=== PATIENT | female | born 1960 | race Caucasian/White ===

== ENCOUNTER 2024-01-31 15:48 | Outpatient (CLI) | payer MEDICARE, OTHER, SELFPAY ==
--- NOTE | 2024-01-31 15:54 | XRR_ITS ---
PROCEDURE INFORMATION: Exam: XR Right Knee Exam date and time: 01/31/2024 4:01 PM Age: 64 years old Clinical indication: Pain; Knee; Right; Additional info: Right knee pain TECHNIQUE: Imaging protocol: Radiologic exam of the right knee. Views: 3 views. COMPARISON: No relevant prior studies available. FINDINGS: Bones/joints: The bones are intact. No fracture. Mild degenerative changes of all 3 knee compartments. No visible knee effusion. Soft tissues: Mild pretibial soft tissue swelling. XR/XR knee RT 3V* [id number] IMPRESSION: 1. No acute skeletal findings. 2. Pretibial soft tissue swelling.
== END 2024-01-31 15:49 | disposition home or self-care (01) ==
LOC: RAD 15:50
PROVIDERS: PCP Clinical Nurse Specialist Adult Health; Visit Provider Clinical Nurse Specialist Adult Health
DX: M25.561 Pain in right knee (principal); E03.9 Hypothyroidism, unspecified; M79.89 Other specified soft tissue disorders
CPT/HCPCS: 73562; 80053; 80061; 84443; 85025

== ENCOUNTER 2025-01-15 16:05 | Emergency (ER) | payer MEDICARE, OTHER, SELFPAY ==
[2025-01-15 16:09] VITALS: BP 157/87; PULSE 108; RESP 19; TEMP 37.1; O2SAT 100; BMI 45.6
--- NOTE | 2025-01-15 16:12 | CTR_ITS ---
PROCEDURE INFORMATION: Exam: CT Neck With Contrast Exam date and time: 01/15/2025 5:17 PM Age: 64 years old Clinical indication: Mass, lump, or swelling in neck; Bilateral and anterior; Prior surgery; Surgery date: 6+ months; Surgery type: Thyroid, CA, no chemo/radiation. ; Additional info: Neck mass TECHNIQUE: Imaging protocol: Computed tomography of the neck with contrast. Radiation optimization: All CT scans at this facility use at least one of these dose optimization techniques: automated exposure control; mA and/or kV adjustment per patient size (includes targeted exams where dose is matched to clinical indication); or iterative reconstruction. Contrast material: OMNIPAQUE 350; Contrast volume: 100 ml; Contrast route: INTRAVENOUS (IV); COMPARISON: CR XR chest 1V portable [id number] 01/15/2025 4:26 PM RADIATION DOSE METRICS: Total DLP (mGy-cm): 558.31 FINDINGS: Paranasal sinuses: Mild mucosal thickening within bilateral maxillary sinuses. No fluid levels. Salivary glands: Normal. Glands are normal in size. Pharynx: Unremarkable. No significant tonsillar enlargement. Larynx: Unremarkable. Epiglottis is normal. Thyroid: Atrophic versus surgically absent. Trachea: Visualized trachea is unremarkable. Lungs: Unremarkable as visualized. Lymph nodes: Numerous enlarged cervical lymph nodes are seen bilaterally. Examples include a 1.9 x 2.40 right level Ib lymph node, a 2.2 x 2.1 cm left level Ib lymph node, a 1.9 x 1.6 cm right level IIa lymph node, and a 1.3 x 2.9 cm left level IIa lymph node. Multiple additional enlarged lymph nodes are seen at essentially all cervical lymph node stations. Additionally, there are multiple enlarged supraclavicular lymph nodes bilaterally, including 1.8 x 2.3 cm right and 1.8 x 1.5 cm left supraclavicular lymph nodes. Multiple enlarged bilateral axillary and subpectoral lymph nodes are partially imaged. Bones/joints: Multilevel cervical spondylosis. Straightening of cervical lordosis is likely positional. No acute fracture. Soft tissues: Unremarkable. No significant soft tissue swelling. CT/CT neck w con* [id number] IMPRESSION: 1. Extensive cervical/supraclavicular and bilateral axillary/subpectoral lymphadenopathy, most likely either a lymphoproliferative disorder or possibly metastases. CT chest and CT abdomen/pelvis could be considered for more complete lymphadenopathy assessment. PET-CT and/or tissue sampling may also be of benefit for further evaluation. 2. Atrophic versus surgically absent thyroid.
--- NOTE | 2025-01-15 16:12 | XRR_ITS ---
PROCEDURE INFORMATION: Exam: XR Chest Exam date and time: 01/15/2025 4:26 PM Age: 64 years old Clinical indication: Other: Neck mass TECHNIQUE: Imaging protocol: Radiologic exam of the chest. Views: 1 view. COMPARISON: No relevant prior studies available. FINDINGS: Tubes, catheters and devices: Surgical clips overlie the upper abdomen. Lungs: Unremarkable. No consolidation. Pleural spaces: Unremarkable. No pleural effusion. No pneumothorax. Heart/Mediastinum: Unremarkable. No cardiomegaly. Bones/joints: Unremarkable. XR/XR chest 1V portable [id number] IMPRESSION: No acute cardiopulmonary process.
--- NOTE | 2025-01-15 16:13 | ECG_ITS ---
[facility] Test Date: 2025-01-15 Pat Name: Fabian Recinos Department: Room: Gender: Female Machine Packer: : [id number] Requested By: Carloz Ko Order Number: [id number] Reading MD: Measurements Intervals [place] Rate: 96 P: 35 MD: 138 QRS: 9 QRSD: 75 T: 8 QT: 369 QTc: 467 Interpretive Statements SINUS RHYTHM LOW QRS VOLTAGE IN PRECORDIAL LEADS [QRS DEFLECTION < 1.0 mV IN CHEST LEADS] [id number]
--- NOTE | 2025-01-15 16:23 | PC.PHAR ---
Pt had 9 otc vitamins, supplements, and nasal sprays on her med list that she said she no longer takes and would like them all removed. Pt only takes Synthroid 88mcg qam and Cymbalta 60mg qpm.
[2025-01-15 16:26] LABS: Basophils # 0.1 10^3/uL (0.0-0.1); Basophils % 0.7 %; Eosinophils # 0.2 10^3/uL (0.0-0.8); Eosinophils % 2.1 %; Hematocrit 44.4 % (36-47); Lymphocytes # 2.4 10^3/uL (0.8-4.8); Lymphocytes % 29.2 %; Mean Corpuscular HGB Conc 31.3 g/dL (30-55); Mean Corpuscular Hemoglobin 25.8 pg (27-33); Mean Corpuscular Volume 82.5 fl (85-98); Mean Platelet Volume 9.5 fL (7.4-10.4); Monocytes # 0.5 10^3/uL (0.2-0.9); Monocytes % 6.6 %; Neutrophils # 4.95 10^3/uL (1.8-7.7); Neutrophils % 61.3 %; Nucleated Red Blood Cells % 0 %; Platelet Count 250 10^3/cmm (157-399); Red Blood Count 5.38 10^6/uL (3.85-5.65); Red Cell Distribution Width 15.4 % (12.1-15.1); White Blood Count 8.08 10^3/uL (3.29-11.43)
[2025-01-15 16:49] LABS: Alanine Aminotransferase 10 U/L (0-33); Albumin Level 4.3 g/dL (3.5-5.2); Alkaline Phosphatase 85 U/L (35-105); Anion Gap 15.9 (5-19); Aspartate Amino Transferase 15 U/L (0-32); Blood Urea Nitrogen 10 mg/dL (8-23); Calcium 9.5 mg/dL (8.5-10.5); Carbon Dioxide 25 mmol/L (22-29); Chloride 102 mmol/L (98-107); Creatinine Clr Calc Pharmacy 85.5183; Glomerular Filtration Rate 62.8 mL/min (90-130); Glucose 107 mg/dL (65-115); Osmolality Calculated 288 mOsm/kg (285-295); Potassium 3.9 mmol/L (3.5-5.1); Sodium 139 mmol/L (136-145); Total Bilirubin 0.5 mg/dL (0.15-1.2); Total Protein 7.3 g/dL (6.6-8.7)
--- NOTE | 2025-01-15 17:14 | W.ED.NECK ---
HPI - Neck Pain/Injury General: Chief Complaint: Neck Pain/Injury Stated Complaint: swelling below chin sent by urgent care Time Seen by Provider: 01/15/25 16:12 History of Present Illness: 64-year-old female with history of thyroid cancer she had a thyroid resection several years ago. In the last 3 weeks she has had onset of increasing swelling in the submandibular space. She is not having difficulty with speech or swallowing but she does have pain in the submandibular area and it radiates to the back of her neck at times she feels like she has cervical neck pain as well. She has not had any fever sweats or chills she has been doing monitoring of her thyroid with TSH is usually when she is on levothyroxine. She states the last time TSH was checked was about a year ago was in the normal range. She denies any fever sweats or chills. Related Data Home Medications ?Medication ?Instructions ?Recorded ?Confirmed CPAP with mask, tubing and all 01/31/24 01/15/25 other supplies duloxetine 60 mg capsule,delayed 60 mg PO QPM 01/15/25 01/15/25 release levothyroxine 88 mcg tablet 88 mcg PO QAM 01/15/25 01/15/25 Allergies Allergy/AdvReac Type Severity Reaction Status Date / Time Penicillins Allergy Intermediate ADR-skin Verified 01/15/25 15:44 rash Tetracyclines Allergy Unknown Unknown Verified 01/15/25 15:44 Review of Systems Const: Denies: fever(s) or chills Card: Denies: chest pain Resp: Denies: dyspnea GI: Denies: abdominal pain : Denies: dysuria, urinary frequency or urinary urgency Musc: Reports: neck pain; Denies: back pain Skin/Breast: Denies: rash Miles/Lymph: Reports: enlarged lymph nodes and tender lymph nodes PFSH ED PFSH: Medical History Thyroid cancer RAJENDRA (obstructive sleep apnea) compliant with CPAP Migraines Morbid obesity Hypothyroidism Minor depression Generalized anxiety disorder Seasonal allergies Hx of Graves' disease Surgical History Hx of thyroidectomy 2007, papillary and follicular cancer History of gastric surgery 1986, stomach stapled with a ring put around it. gallbladder removed at that time. History of bilateral carpal tunnel release bilateral 2002 Hx of tonsillectomy 1977 Family History Mother Breast cancer Diabetes Brother CAD (coronary artery disease) Congestive heart failure (CHF) Father Hyperthyroidism Sister Hyperthyroidism Denies family history of Clotting disorder Anesthesia complication Bleeding disorder Social History Smoking and tobacco/nicotine status: never used tobacco/nicotine Alcohol intake: current Alcohol intake frequency: holidays/special occasions only Substance/Drug Use: current Other substance/drug use details: smokes occasionally if playing cards Marital status: Marital status details: 3 step children Number of grandchildren: 4 Physical Exam Const: GENERAL APPEARANCE: cooperative ORIENTATION/CONSCIOUSNESS: Yes awake, Yes oriented to person, Yes oriented to place and Yes oriented to time HENMT: COMMON NORMALS: normocephalic, atraumatic and hearing grossly normal bilaterally HEAD & SCALP: normocephalic and atraumatic Lymph: LYMPHATIC: lymphadenopathy bilateral anterior cervical , submandibular multiple Resp: COMMON NORMALS: normal respiratory effort, No retractions, No use of accessory muscles and clear to auscultation bilaterally AUSCULTATION: clear to auscultation bilaterally Cardio: COMMON NORMALS: regular rate, regular rhythm and No murmurs present (Cardio) RATE: regular rate RHYTHM: regular rhythm GI: COMMON NORMALS: Soft to palpation and No hepatosplenomegaly present AUSCULTATION: Yes normoactive bowel sounds PALPATION: Yes Soft to palpation, No Tenderness to palpation present (GI), No Guarding due to palpation present (GI) and Yes No hepatosplenomegaly present Extremity: COMMON NORMALS: normal to inspection, capillary refill normal, no clubbing, cyanosis or edema, no calf tenderness and no pedal edema Neuro: SENSORIUM/ORIENTATION: Yes oriented to person, Yes oriented to place and Yes oriented to time Skin: COMMON NORMALS: no rashes or lesions noted GENERAL SKIN EXAM: no rashes or lesions noted Course Vital Signs: Vital signs: Vital Signs Temperature 98.8 F 01/15/25 16:09 Pulse Rate 84 01/15/25 18:20 Respiratory Rate 19 H 01/15/25 16:09 Blood Pressure 142/95 01/15/25 18:20 Pulse Oximetry 95 01/15/25 18:20 Oxygen Delivery Me thod Room Air 01/15/25 16:09 MDM - Neck Pain/Injury Medical Decision Making Significant submandibular and cervical lymphadenopathy. CT done shows the same. Also shows extensive supraclavicular axillary and superior mediastinal lymphadenopathy. Her TSH is normal her other labs are normal particularly her differential on her white count and her overall white count is normal. This came up over relatively short course. She is not having any fevers she has no stridor she has no difficulty with swallowing she does notice when she tucks her chin to her chest she will feel like she has little more difficult time swallowing but she is otherwise not having any difficulty. I discussed with Dr. Burnham he will see the patient in a few days in his office send biopsy these lymph nodes with fine-needle aspiration. Do not recommend antibiotics or steroids at this time. Will set up an outpatient CT chest abdomen pelvis with oral contrast and IV contrast. Medical Records I reviewed the patient's medical records. Lab Data I reviewed the patient's lab results. 01/15/25 16:20 01/15/25 16:20 Radiology Impressions Chest X-Ray 01/15/25 16:12 IMPRESSION: No acute cardiopulmonary process. Neck CT 01/15/25 16:12 IMPRESSION: 1. Extensive cervical/supraclavicular and bilateral axillary/subpectoral lymphadenopathy, most likely either a lymphoproliferative disorder or possibly metastases. CT chest and CT abdomen/pelvis could be considered for more complete lymphadenopathy assessment. PET-CT and/or tissue sampling may also be of benefit for further evaluation. 2. Atrophic versus surgically absent thyroid. Laboratory Results WBC 8.08 10^3/uL (3.29-11.43) 01/15/25 16:20 RBC 5.38 10^6/uL (3.85-5.65) 01/15/25 16:20 Hgb 13.90 g/dL (11.27-16.99) 01/15/25 16:20 Hct 44.4 % (36-47) 01/15/25 16:20 MCV 82.5 fl (85-98) L 01/15/25 16:20 MCH 25.8 pg (27-33) L 01/15/25 16:20 MCHC 31.3 g/dL (30-55) 01/15/25 16:20 RDW 15.4 % (12.1-15.1) H 01/15/25 16:20 Plt Count 250 10^3/cmm (157-399) 01/15/25 16:20 MPV 9.5 fL (7.4-10.4) 01/15/25 16:20 Neut % (Auto) 61.3 % 01/15/25 16:20 Lymph % (Auto) 29.2 % 01/15/25 16:20 Murray % (Auto) 6.6 % 01/15/25 16:20 Eos % (Auto) 2.1 % 01/15/25 16:20 Baso % (Auto) 0.7 % 01/15/25 16:20 Neut # (Auto) 4.95 10^3/uL (1.8-7.7) 01/15/25 16:20 Lymph # (Auto) 2.4 10^3/uL (0.8-4.8) 01/15/25 16:20 Murray # (Auto) 0.5 10^3/uL (0.2-0.9) 01/15/25 16:20 Eos # (Auto) 0.2 10^3/uL (0.0-0.8) 01/15/25 16:20 Baso # (Auto) 0.1 10^3/uL (0.0-0.1) 01/15/25 16:20 Nucleated RBC % (auto) 0 % 01/15/25 16:20 Nucleated RBCs # 0.0 /100WBC 01/15/25 16:20 Sodium 139 mmol/L (136-145) 01/15/25 16:20 Potassium 3.9 mmol/L (3.5-5.1) 01/15/25 16:20 Chloride 102 mmol/L (98-107) 01/15/25 16:20 Carbon Dioxide 25 mmol/L (22-29) 01/15/25 16:20 Anion Gap 15.9 (5-19) 01/15/25 16:20 BUN 10 mg/dL (8-23) 01/15/25 16:20 Creatinine 0.9 mg/dL (0.5-0.9) 01/15/25 16:20 GFR Calculation 62.8 mL/min (90-130) L 01/15/25 16:20 Glucose 107 mg/dL (65-115) 01/15/25 16:20 Calculated Osmolality 288 mOsm/kg (285-295) 01/15/25 16:20 Calcium 9.5 mg/dL (8.5-10.5) 01/15/25 16:20 Total Bilirubin 0.5 mg/dL (0.15-1.2) 01/15/25 16:20 AST 15 U/L (0-32) 01/15/25 16:20 ALT 10 U/L (0-33) 01/15/25 16:20 Alkaline Phosphatase 85 U/L (35-105) 01/15/25 16:20 Total Protein 7.3 g/dL (6.6-8.7) 01/15/25 16:20 Albumin 4.3 g/dL (3.5-5.2) 01/15/25 16:20 Globulin 3.0 g/dL (1.3-4.6) 01/15/25 16:20 TSH 3.02 uIU/mL (0.27-4.20) 01/15/25 16:20 All radiology interpretation(s) finalized by discharge Discharge Plan Discharge Patient Disposition: Home Clinical Impression: Cervical adenopathy, History of thyroid cancer Condition: Stable Prescriptions: No Action (DME) CPAP with mask, tubing and all other supplies 0 .Route .MEDSUPPLY levothyroxine 88 mcg tablet 88 mcg PO QAM duloxetine 60 mg capsule,delayed release(DR/EC) 60 mg PO QPM Discharge Orders: Discharge ED (Routine); Ordered 01/15/25 Ordered By: Carloz Angel Referrals: Pop Daugherty MD [Physician, Ear, Nose, Throat] Referral Note: Please call Dr. Daugherty's office to arrange for a appointment on January 18. Discharge Diet: Usual diet Discharge Activity: Resume usual activity Patient Instructions: Opioid Safety, Pain Management Activity Restrictions/Additional Instructions: Thank you for choosing [facility] for your healthcare needs today. It is very important that you follow up as instructed or that you return to the Emergency Department should you have concerns or if your condition changes or worsens in any way. You were seen in the emergency room today for enlarged lymph nodes in your neck. CT showed multiple lymph nodes under the jaw and the neck and in the upper chest clavicle and axillary area. The best way to further evaluate these is to do a biopsy. Contacted Dr. Burnham who will see you on Tuesday, January 18 in his office. His address and phone number included in your discharge instructions. Please call his office tomorrow morning to set up the exact time for the appointment. In addition to this case management will make arrangements for you to have a CT of your chest abdomen pelvis done with contrast as an outpatient. Continue your current medications at this time. Print Language: Kinyarwanda Coding Level of Care Code ED Manufacturing Job Titles for Sylvia Wu
[2025-01-15] MEDS: iohexol 350 mg/mL 500 mL Btl (per mL) IV (17:29)
[2025-01-15 17:53] LABS: Thyroid Stimulating Hormone 3.02 uIU/mL (0.27-4.20)
[2025-01-15 18:20] VITALS: BP 142/95; PULSE 84; O2SAT 95
--- NOTE | 2025-01-16 09:08 | DCPLANNER ---
Referral sent to Dr Daugherty
== END 2025-01-15 18:21 | disposition home or self-care (01) ==
PROVIDERS: Emergency Provider Family Medicine; PCP Clinical Nurse Specialist Adult Health
DX: R59.9 Enlarged lymph nodes, unspecified (principal); Z85.850 Personal history of malignant neoplasm of thyroid
CPT/HCPCS: 36415; 70491; 71045; 80053; 84443; 85025; 93005; 99285

== ENCOUNTER 2025-01-29 13:28 | Outpatient (CLI) | payer MEDICARE, OTHER, SELFPAY ==
--- NOTE | 2025-01-29 13:32 | CT_ITS ---
WS: [id number] CT CHEST, ABDOMEN AND PELVIS WITH CONTRAST HISTORY: LOCALIZED ENLARGED LYMPH NODES TECHNIQUE: Contiguous 5 mm axial imaging performed through the chest, abdomen and pelvis with IV contrast, oral contrast has been provided. Coronal and sagittal reformats chest. Coronal and sagittal reformats through the abdomen and pelvis. All CT scans at [facility] use at least one of these dose optimization techniques: automated exposure control; mA and/or kV adjustment per patient size (includes targeted exams where dose is matched to clinical indication); or iterative reconstruction. CONTRAST: Omnipaque 350; 100 mL IV. DLP: 1673.06 mGy.cm COMPARISON: Neck CT 01/15/[address]: Imaging through the upper chest demonstrates numerous enlarged lower cervical chain and supraclavicular, axillary and chest wall lymph nodes. The largest lymph nodes measure up to 4.7 cm. Fatty hilum is no longer present within these lymph nodes and there is enhancement. Lungs are clear and well aerated. No pneumonia, pulmonary nodule or mass. No pericardial or pleural effusions. No hilar or mediastinal significantly enlarged lymph nodes. There are a few small lymph nodes which measure within normal range. Heart size is normal. Abdomen CT: Hepatic steatosis. Prior cholecystectomy. Spleen is normal size at 12.5 cm. Common bile duct is very slightly enlarged due to the cholecystectomy. Negative pancreas. No adrenal mass. No renal obstruction. Atherosclerosis aorta. Prior gastric bypass. No GI tract obstruction. There are a few scattered diverticula in the distal colon. No mesenteric adenopathy. Retroperitoneal lymph nodes are identified. Increasing number of lymph nodes in the retroperitoneum below the level of the renal veins. Para-aortic and aortocaval lymph nodes. Increasing number of lymph nodes in burden at the aortic bifurcation. Lymphadenopathy extends along the iliac chains. There is a cluster of lymph nodes extending along the RIGHT iliac chain measuring 5.2 x 2.1 cm. Lymph nodes continue bilaterally into the obturator and inguinal regions. RIGHT obturator adenopathy measures 7.5 x 2.8 cm. Small lymph nodes on the LEFT. Bilateral inguinal lymphadenopathy with the largest on the RIGHT measuring 4.2 cm. There is extensive adenopathy along the inguinal canals. Pelvic CT: Urinary bladder is slightly compressed due to the inguinal and obturator lymph nodes. No ascites. Degenerative changes in the lower lumbar spine. No destructive bone process. CT/CT chest abdpel w/*[id number] IMPRESSION: 1. Extensive upper thorax lymphadenopathy. Pathological lymph nodes along the lower cervical chains, supraclavicular and axillary. 2. Extensive lymphadenopathy burden retroperitoneum. Increasing lymph node bur den along the iliac chains through the obturator lymph node groups and along th e inguinal regions. Large confluent lymph node groups. Slightly greater burden following the RIGHT iliac chain lymph nodes. Suspicious for lymphoproliferative disease such as lymphoma or leukemia. Consider PET/CT imaging and biopsy of th e lymph nodes. 3. Largest inguinal lymph node on the RIGHT measures 4.2 cm. 4. No splenomegaly. 5. Prior cholecystectomy. 6. Prior gastric bypass.
[2025-01-29] MEDS: iohexol 350 mg/mL 500 mL Btl (per mL) PO (14:58)
[2025-01-29] MEDS: iohexol 350 mg/mL 500 mL Btl (per mL) IV (14:58)
== END 2025-01-29 13:29 | disposition home or self-care (01) ==
LOC: RAD 13:29
PROVIDERS: PCP Clinical Nurse Specialist Adult Health; Visit Provider Family Medicine
DX: R59.0 Localized enlarged lymph nodes (principal); Z90.49 Acquired absence of other specified parts of digestive tract; Z98.890 Other specified postprocedural states; K76.0 Fatty (change of) liver, not elsewhere classified; I70.0 Atherosclerosis of aorta; K57.30 Diverticulosis of large intestine without perforation or abscess without bleeding; R93.89 Abnormal findings on diagnostic imaging of other specified body structures; M47.896 Other spondylosis, lumbar region
CPT/HCPCS: 71260; 74177

== ENCOUNTER 2025-03-05 08:58 | Oncology outpatient (recurring) (ONCR) | payer MEDICARE, OTHER, SELFPAY ==
--- NOTE | 2025-02-22 12:30 | PETR_ITS ---
PROCEDURE INFORMATION: Exam: PET/CT Skull Base to Mid-thigh Exam date and time: 02/22/2025 1:14 PM Age: 65 years old Clinical indication: Symptoms: New diagnosis. Mantle cell lymphoma. Prior surgery; Surgery date: 6+ months; Surgery type: Gastric bypass / gb LABS AND CLINICAL REPORTS: Glucose: 103 mg/dl Treatment strategy for malignancy (PET staging): Initial Staging (PI) TECHNIQUE: Imaging protocol: Following at least four-hour fasting and following the injection of radiopharmaceutical, low dose CT images were obtained. Then, PET images were obtained. Attenuation corrected images were constructed using the CT scan. Fused images of PET and CT were reviewed. The standardized uptake values (SUV) reported below are maximum values within a region of interest, expressed in gm/ml. Exam includes orbital meatal line to mid-thigh. SUV normalization method: BodyWeight Radiopharmaceutical: 12.13 mCi F-18 FDG (Fluorodeoxyglucose), IV. Time of imaging post radiopharmaceutical administration: 46 minutes Injection site: Left AC COMPARISON: 1. CT chest abdpel w/*[id number] 01/29/2025 2:[address] neck w con* [id number] 01/15/2025 5:17 PM FINDINGS: Brain: Visualized brain has normal physiologic uptake. Pharynx: No abnormal uptake. Larynx: No abnormal uptake. Lungs, pleura and trachea: No abnormal uptake. Mild bilateral platelike atelectasis versus scarring. Heart: Normal physiologic uptake. Mediastinal space: No abnormal uptake. Liver: No abnormal uptake. Gallbladder and biliary ducts: No abnormal uptake. Prior cholecystectomy. Pancreas: No abnormal uptake. Spleen: Mild splenomegaly with diffusely increased uptake greater than liver showing SUV mean 4.5. Adrenal glands: No abnormal uptake. Kidneys and ureters: Normal physiologic uptake. Stomach and bowel: No abnormal uptake. Prior gastric bypass. Colonic diverticulosis without findings of diverticulitis. Vasculature: No abnormal uptake. Mild systemic atherosclerotic calcification without aortic aneurysm. Lymph nodes: Diffuse FDG avid lymphadenopathy throughout the neck, chest, abdomen and pelvis with index right submandibular node measuring 2.3 cm in the short axis on axial image 65 showing SUV max 12.0, left supraclavicular node measuring 1.4 cm in the short axis on axial image 81 showing SUV max 19.2, left axillary node measuring 4.2 x 3.7 cm on axial image 98 showing SUV max 17.3, right hilar uptake showing SUV max 6.7 on axial image 110, posterior para-aortic mediastinal node measuring 1 cm in the short axis on axial image 141 showing SUV max 7.0, left retroperitoneal para-aortic nadia conglomerate measuring 2.1 x 1.6 cm on axial image 201 showing SUV max 13.6, right external iliac node measuring 2.6 cm in the short axis on axial image 250 with SUV max 16.0, and left inguinal node measuring 2.7 cm in the short axis on axial image 261 showing SUV max 14.9. Bilateral FDG avid intra- and periparotid nodules most likely representing lymphadenopathy. Skeleton: Mild uptake along the spine greatest at the lumbar spine (SUV max 4.0 at the L4 vertebral body), as well as patchy low-level uptake at the pelvis and proximal femora. Degenerative change along the spine. Soft tissues: No abnormal uptake in the visualized head, neck, chest, abdomen, pelvis, and extremities. METRICS: Mediastinal blood pool: SUV mean 2.3 Liver uptake: SUV mean 2.4 PET/PET skull to thigh INIT [id number] IMPRESSION: 1. Deauville 5 lymphoma with extensive FDG avid lymphadenopathy throughout the neck, chest, abdomen and pelvis as well as mild FDG-avid splenomegaly. 2. Mild uptake along the spine, pelvis, and proximal femora may be benign hyperplasia, cannot exclude lymphomatous involvement.
== END 2025-03-18 23:59 | disposition home or self-care (01) ==
PROVIDERS: PCP Clinical Nurse Specialist Adult Health; Visit Provider Internal Medicine Medical Oncology
DX: C83.18 Mantle cell lymphoma, lymph nodes of multiple sites (principal); R03.0 Elevated blood-pressure reading, without diagnosis of hypertension; Z79.899 Other long term (current) drug therapy
CPT/HCPCS: 78815; 99205; 99214; A9552

== ENCOUNTER → 2025-03-07 11:02 | Outpatient (BNVA) | payer MEDICARE, OTHER, SELFPAY | PROVIDERS: PCP Clinical Nurse Specialist Adult Health; Referring Provider Internal Medicine Medical Oncology; Visit Provider Student in an Organized Health Care Education/Training Program | DX: Z95.828 Presence of other vascular implants and grafts (principal); C83.10 Mantle cell lymphoma, unspecified site | CPT/HCPCS: 99204 ==

== ENCOUNTER 2025-03-13 06:27 | Day surgery (SDC) | payer MEDICARE, OTHER, SELFPAY ==
[2025-03-13] VITALS (9 sets, daily range): BP systolic 86–153; BP diastolic 58–116; PULSE 78–100; RESP 17–18; TEMP 36.2–37.4; O2SAT 90–99; BMI 44.4
--- NOTE | 2025-03-13 06:32 | SC_ITS ---
WS: [id number] Exam: C-arm FL for CVA [id number] Date/Time of Exam: 03/13/2025 6:32 AM Reason For Exam: Port placement Single AP C-arm image of the upper chest is submitted. A RIGHT subclavian port has been placed and probably ends in the lower one third of the SVC.
[2025-03-13] MEDS: sodium chloride 0.9% 1,000 ML 30 ML IV (06:52)
--- NOTE | 2025-03-13 07:00 | W.PM.OPSUD ---
Surgery/Procedure H&P Update DATE OF PROCEDURE: March 13, 2025 DATE H&P PERFORMED: 03/07/25 H&P UPDATE INFORMATION: I have reviewed H&P completed within last 30 days, I have examined patient prior to procedure and No changes to prior documentation PLANNED PROCEDURE: Operation Date: 03/13/25 08:00 Proposed Procedures p Portacath Placement 56583, [id number](Not Applicable) - Best Lion MD
--- NOTE | 2025-03-13 07:13 | ANES.PREANE2 ---
Pre-Anesthetic Assessment Height/Weight: Height 1.68 m Weight 124.738 kg Temp Pulse Resp BP Pulse Ox O2 Del Method 99.4 F 100 18 153/116 99 Room Air 03/13/25 06:39 03/13/25 06:39 03/13/25 06:39 03/13/25 06:39 03/13/25 06:39 03/13/25 06:40 Operation Date: 03/13/25 08:00 Proposed Procedures p Portacath Placement [id number], [id number](Not Applicable) - Best Lion MD Familial anesthetic complications: DIfficult intubation required [place] [facility] [place] Beta Kartik taken within 24 hours: N/A Was Clonidine taken within 24 hours: N/A Last intake: Intake Last Liquid Date 03/12/25 Last Liquid Time 23:30 Last Solid Date 03/12/25 Last Solid Time 21:30 Social No alcohol and No tobacco Exam alert, oriented x 3, clear to auscultation bilaterally and regular rate & rhythm Airway Mallampati: Class IV Dentition: chipped and loose Comments: Comments: large neck circumference, excess submandibular tissue hx thyroidectomy Metabolic Morbid Obesity and Thyroid Disease Anesthetic Plan ASA status: 3 Anesthesia: MAC Risk of > 500 ml blood loss (7ml/kg in children): No Medications/Allergies Home Medications ?Medication ?Instructions ?Recorded ?Confirmed ?Last Taken ?Type CPAP with mask, tubing and all 01/31/24 03/07/25 Unknown History other supplies acalabrutinib 100 mg capsule 100 mg PO Q12H #60 caps 03/05/25 03/12/25 Unknown Rx acyclovir 400 mg tablet 400 mg PO BID #60 tabs 03/05/25 03/12/25 Unknown Rx allopurinol 300 mg tablet 300 mg PO DAILY #30 tabs 03/05/25 03/12/25 Unknown Rx ondansetron HCl 4 mg tablet 4 mg PO Q6H PRN nausea and 03/06/25 03/12/25 Unknown Rx vomiting #30 tabs prochlorperazine maleate 10 mg 10 mg PO Q4H PRN mild nausea #30 03/06/25 03/12/25 Unknown Rx tablet (Compazine) tabs sulfamethoxazole 800 1 tab PO MOWEFR infection 03/06/25 03/12/25 Unknown Rx mg-trimethoprim 160 mg tablet prevention #24 tabs (Bactrim DS) duloxetine 60 mg capsule,delayed 60 mg PO QPM #90 caps 03/12/25 03/13/25 03/12/25 23:30 Rx release fluconazole 100 mg tablet 100 mg PO DAILY PRN fungal 03/12/25 03/12/25 Unknown History infection prevention levothyroxine 88 mcg tablet 88 mcg PO QAM #90 tabs 03/12/25 03/13/25 03/13/25 05:00 Rx Allergies Allergy/AdvReac Type Severity Reaction Status Date / Time Penicillins Allergy Intermediate ADR-skin Verified 03/13/25 06:34 rash Tetracyclines Allergy Unknown Unknown Verified 03/13/25 06:34 Current Medications Generic Name Dose Route Start Last Admin Trade Name Freq PRN Reason Stop Dose Admin Sodium Chloride 1,000 mls @ 30 mls/hr 03/13/25 06:45 03/13/25 06:52 Sodium Chloride 0.9% IV 03/14/25 06:44 30 mls/hr .Q24H NKECHI Administration PFSH Anesthesia Medical History Thyroid cancer RAJENDRA (obstructive sleep apnea) compliant with CPAP Migraines Morbid obesity Hypothyroidism Minor depression Generalized anxiety disorder Seasonal allergies Hx of Graves' disease Surgical History Hx of thyroidectomy 2007, papillary and follicular cancer History of gastric surgery 1986, stomach stapled with a ring put around it. gallbladder removed at that time. History of bilateral carpal tunnel release bilateral 2002 Hx of tonsillectomy 1977 Family History Mother Breast cancer Diabetes Brother CAD (coronary artery disease) Congestive heart failure (CHF) Father Hyperthyroidism Sister Hyperthyroidism Denies family history of Clotting disorder Anesthesia complication Bleeding disorder Social History Smoking and tobacco/nicotine status: never used tobacco/nicotine Alcohol intake: current Alcohol intake frequency: holidays/special occasions only Substance/Drug Use: current Other substance/drug use details: smokes occasionally if playing cards Marital status: Marital status details: 3 step children Number of grandchildren: 4
[2025-03-13] MEDS: levofloxacin-dextrose 5 % 500 MG/100 ML PREMIX 100 MG IV (08:20)
[2025-03-13] MEDS: heparin, porcine 1,000 unit/mL INJ 10 mL 6000 UNIT IRRIGATION (09:05)
[2025-03-13] MEDS: lidocaine-epi 1% 20 mL INJ INJECTION (09:17)
[2025-03-13] MEDS: BUPivacaine 0.25% INJ 30 mL INJECTION (09:17)
--- NOTE | 2025-03-13 09:22 | PM.OP ---
Operative Report Date of procedure: March 13, 2025 Pre-op diagnosis: Lymphoma Post-op diagnosis: same Post-op findings: Tip of catheter at atriocaval junction. Confirmed with intraoperative fluoroscopy Procedure done: Port-A-Cath placement Implants: Port-A-Cath Specimens removed/disposition: N/A Pathology: none sent Surgeon: Best Lion MD Global Account Director: N/A Anesthesia: General Estimated blood loss (mL): 10 Complications: N/A Findings: Tip of catheter at atriocaval junction confirmed with intraoperative fluoroscopy. Condition: stable Disposition: same day Brief History: 65-year-old female with history of lymphoma. Needs port for chemotherapy. Discussed risk and benefits and patient agreed to proceed with Port-A-Cath placement. Procedure: Patient was brought into the operating room and a timeout was carried out. Procedure was done under MAC. Patient was placed supine with the arms tucked and in Trendelenburg. Patient was prepped and draped in the usual sterile fashion. Using ultrasound guidance the right internal jugular vein was accessed. A guidewire was then placed down to the atriocaval junction using fluoroscopy. The finder needle was removed and the guidewire was secured. I then turned my attention to creating a pocket over the right chest. Make sure to locally infiltrated using plain lidocaine and bupivacaine at the site of the pocket and throughout the tunnel site. I confirmed adequate hemostasis at the pocket. I then proceeded to place the port that was already preassembled and flushed with heparinized saline and the chest pocket. I tunneled the catheter from the chest to the neck at the site where I accessed the internal jugular vein. I measured and adjusted the length of the catheter so it would reach the atrial caval junction. At this point, I used a dilator to dilate the tract into the internal jugular vein using fluoroscopy. I removed the guidewire and proceeded to thread the central venous catheter through the introducer. In the process, I removed the sheath as a completely pushed the catheter into the internal jugular vein. I then confirmed adequate placement of the catheter by performing intraoperative interpretation of fluoroscopy. The tip of the catheter was confirmed to be placed in the atriocaval junction. There were no kinks noted throughout the trajectory of the catheter. I then proceeded to test the port and was satisfied with its functionality. I proceeded to flushed the catheter without any issues. I then hep-locked the port. Skin was closed using deep dermal 3-0 Vicryl, subcuticular 4-0 Monocryl, and Dermabond. Patient was then transferred to PACU without any complications.
--- NOTE | 2025-03-13 10:55 | ANE.PACU2 ---
Inpatient post-anesthesia follow up: Airway intact: Yes Vital signs: Temperature 97.7 F Pulse Rate 78 Respiratory Rate 17 Blood Pressure 125/73 Pulse Oximetry 95 Oxygen Delivery Me thod Room Air Oxygen Flow Rate 10 Fraction of Inspir ed Oxygen Hydration adequate: Yes Nausea and vomiting: No Pain level: 1 Mental status: Baseline
== END 2025-03-13 10:52 | disposition home or self-care (01) ==
PROVIDERS: PCP Clinical Nurse Specialist Adult Health; Visit Provider Student in an Organized Health Care Education/Training Program
PROC: (CPT 36561; principal; 2025-03-13 08:00)
DX: C85.90 Non-Hodgkin lymphoma, unspecified, unspecified site (principal); E89.0 Postprocedural hypothyroidism; E66.01 Morbid (severe) obesity due to excess calories; Z68.41 Body mass index [BMI] 40.0-44.9, adult; G47.33 Obstructive sleep apnea (adult) (pediatric); F41.8 Other specified anxiety disorders
CPT/HCPCS: 36561; 76000; 77001; C1788; J0330; J1100; J1644; J1956; J2371; J2405; J2704; J3010; J3490; J7030; J9999

== ENCOUNTER 2025-03-19 07:41 | Oncology outpatient (recurring) (ONCR) | payer MEDICARE, OTHER, SELFPAY ==
[2025-03-19] VITALS (10 sets, daily range): BP systolic 124–161; BP diastolic 78–87; PULSE 78–103; RESP 17–18; TEMP 35.7–36.9; O2SAT 95–99
[2025-03-19 08:07] LABS: Hematocrit 40.9 % (36-47); Hemoglobin 12.80 g/dL (11.27-16.99); Mean Corpuscular HGB Conc 31.3 g/dL (30-55); Mean Corpuscular Hemoglobin 25.9 pg (27-33); Mean Corpuscular Volume 82.6 fl (85-98); Nucleated Red Blood Cells % 0 %; Platelet Count 179 10^3/cmm (157-399); Red Blood Count 4.95 10^6/uL (3.85-5.65); White Blood Count 7.82 10^3/uL (3.29-11.43)
[2025-03-19 08:26] LABS: Alanine Aminotransferase 9 U/L (0-33); Albumin Level 3.9 g/dL (3.5-5.2); Alkaline Phosphatase 95 U/L (35-105); Anion Gap 17.0 (5-19); Aspartate Amino Transferase 15 U/L (0-32); Blood Urea Nitrogen 10 mg/dL (8-23); Calcium 9.2 mg/dL (8.5-10.5); Carbon Dioxide 25 mmol/L (22-29); Chloride 102 mmol/L (98-107); Creatinine Clr Calc Pharmacy 68.3161; Globulin 2.7 g/dL (1.3-4.6); Glucose 107 mg/dL (65-115); Osmolality Calculated 290 mOsm/kg (285-295); Potassium 4.0 mmol/L (3.5-5.1); Sodium 140 mmol/L (136-145); Total Protein 6.6 g/dL (6.6-8.7)
[2025-03-19 09:02] LABS: Hepatitis A Antibody IgM Non-Reactive (Nonreactive); Hepatitis B Surface Antigen Non-Reactive (Nonreactive)
[2025-03-19] MEDS: diphenhydrAMINE 50 mg/mL SDV 1mL 25 MG IVP ×2 (10:15→13:03)
[2025-03-19] MEDS: ondansetron 2 mg/ML SDV 2 mL 8 MG IVP (10:21)
[2025-03-19] MEDS: dexamethasone 4 mg/mL INJ 5 mL 12 MG IVP (10:25)
[2025-03-19] MEDS: SODIUM CHLORIDE 0.9% IV ×2 (11:18→15:54)
[2025-03-19] MEDS: RITUXIMAB PVVR IV (11:18)
[2025-03-19] MEDS: BENDAMUSTINE IV (15:54)
== END 2025-03-19 23:59 | disposition home or self-care (01) ==
PROVIDERS: Nurse Practitioner; PCP Clinical Nurse Specialist Adult Health; Visit Provider Internal Medicine Medical Oncology
DX: Z51.11 Encounter for antineoplastic chemotherapy (principal); C83.18 Mantle cell lymphoma, lymph nodes of multiple sites; R03.0 Elevated blood-pressure reading, without diagnosis of hypertension; F41.1 Generalized anxiety disorder; E03.9 Hypothyroidism, unspecified; Z79.899 Other long term (current) drug therapy; Z79.52 Long term (current) use of systemic steroids
CPT/HCPCS: 80053; 85025; 86705; 86706; 86709; 86803; 87340; 96375; 96376; 96413; 96415; 96417; 99215; J1100; J1200; J2405; J7040; J7050; J9034; J9999; Q5119

== ENCOUNTER 2025-03-20 12:51 | Oncology outpatient (recurring) (ONCR) | payer MEDICARE, OTHER, SELFPAY ==
[2025-03-20] MEDS: dexamethasone 4 mg/mL INJ 5 mL 12 MG IVP (13:11)
[2025-03-20] MEDS: SODIUM CHLORIDE 0.9% IV (13:52)
[2025-03-20] MEDS: BENDAMUSTINE IV (13:52)
[2025-03-20] MEDS: pegfilgrastim 6 mg/0.6 mL Kit (onpro) SUBCUT (14:21)
== END 2025-03-20 23:59 | disposition home or self-care (01) ==
PROVIDERS: PCP Clinical Nurse Specialist Adult Health; Visit Provider Internal Medicine Medical Oncology
DX: Z51.11 Encounter for antineoplastic chemotherapy (principal); C83.18 Mantle cell lymphoma, lymph nodes of multiple sites; Z79.52 Long term (current) use of systemic steroids; Z79.899 Other long term (current) drug therapy
CPT/HCPCS: 96372; 96375; 96377; 96413; J1100; J2469; J2506; J7050; J9034; J9999

== ENCOUNTER → 2025-03-28 11:03 | Outpatient (BNVA) | payer MEDICARE, OTHER, SELFPAY | PROVIDERS: PCP Clinical Nurse Specialist Adult Health; Visit Provider Student in an Organized Health Care Education/Training Program | DX: C83.10 Mantle cell lymphoma, unspecified site (principal); Z95.828 Presence of other vascular implants and grafts | CPT/HCPCS: 99213 ==

== ENCOUNTER 2025-04-16 08:00 | Oncology outpatient (recurring) (ONCR) | payer MEDICARE, OTHER, SELFPAY ==
[2025-03-26 09:06] LABS: Hematocrit 46.0 % (36-47); Hemoglobin 14.70 g/dL (11.27-16.99); Mean Corpuscular HGB Conc 32.0 g/dL (30-55); Mean Corpuscular Hemoglobin 26.0 pg (27-33); Mean Corpuscular Volume 81.4 fl (85-98); Nucleated Red Blood Cells % 0 %; Platelet Count 230 10^3/cmm (157-399); Red Blood Count 5.65 10^6/uL (3.85-5.65); White Blood Count 27.44 10^3/uL (3.29-11.43)
[2025-03-26 09:30] LABS: Alanine Aminotransferase 11 U/L (0-33); Albumin Level 4.1 g/dL (3.5-5.2); Alkaline Phosphatase 149 U/L (35-105); Anion Gap 18.6 (5-19); Aspartate Amino Transferase 13 U/L (0-32); Blood Urea Nitrogen 16 mg/dL (8-23); Calcium 9.0 mg/dL (8.5-10.5); Carbon Dioxide 20 mmol/L (22-29); Chloride 101 mmol/L (98-107); Creatinine Clr Calc Pharmacy 55.8549; Globulin 2.9 g/dL (1.3-4.6); Glucose 148 mg/dL (65-115); Magnesium 1.9 mg/dL (1.7-2.3); Osmolality Calculated 286 mOsm/kg (285-295); Potassium 3.6 mmol/L (3.5-5.1); Sodium 136 mmol/L (136-145); Thyroid Stimulating Hormone 2.84 uIU/mL (0.27-4.20); Total Protein 7.0 g/dL (6.6-8.7); Uric Acid 7.0 mg/dL (2.4-5.7)
[2025-04-02 08:32] LABS: Hematocrit 42.0 % (36-47); Hemoglobin 13.70 g/dL (11.27-16.99); Mean Corpuscular HGB Conc 32.6 g/dL (30-55); Mean Corpuscular Hemoglobin 25.8 pg (27-33); Mean Corpuscular Volume 79.1 fl (85-98); Nucleated Red Blood Cells % 0 %; Platelet Count 204 10^3/cmm (157-399); Red Blood Count 5.31 10^6/uL (3.85-5.65); White Blood Count 10.88 10^3/uL (3.29-11.43)
[2025-04-02 08:45] LABS: Alanine Aminotransferase 24 U/L (0-33); Albumin Level 3.8 g/dL (3.5-5.2); Alkaline Phosphatase 170 U/L (35-105); Anion Gap 17.6 (5-19); Aspartate Amino Transferase 17 U/L (0-32); Blood Urea Nitrogen 12 mg/dL (8-23); Calcium 9.6 mg/dL (8.5-10.5); Carbon Dioxide 24 mmol/L (22-29); Chloride 98 mmol/L (98-107); Creatinine Clr Calc Pharmacy 65.2899; Globulin 3.2 g/dL (1.3-4.6); Glucose 126 mg/dL (65-115); Osmolality Calculated 283 mOsm/kg (285-295); Potassium 3.6 mmol/L (3.5-5.1); Sodium 136 mmol/L (136-145); Total Protein 7.0 g/dL (6.6-8.7)
--- NOTE | 2025-04-10 13:45 | MR_ITS ---
WS: [id number] MRI LUMBAR SPINE WITH CONTRAST TECHNIQUE: Sagittal T1, T2 and STIR imaging. Axial T1 and T2 imaging. Post gadolinium imaging was obtained. CLINICAL INFORMATION: lower back pain, right groin and leg severe pain COMPARISON: PET/CT 02/22/2025 FINDINGS: Mild lumbar curve. No acute compression. No evidence of enhancing metastatic disease in the lumbar spine. Endplate degenerative changes at L3-L4 and L4-L5 with fatty marrow replacement and sclerosis. L1-L2: Mild annular bulging. Mild facet arthropathy. Mild LEFT foraminal narrowing L2-L3: Mild disc bulging with moderate central canal stenosis. Impingement LEFT subarticular recess. LEFT foraminal protrusion impinges the exiting LEFT L2 nerve root. L3-L4: Moderate central canal stenosis with a RIGHT subarticular protrusion. Mild bilateral foraminal narrowing. Moderate facet arthropathy. L4-L5: LEFT subarticular protrusion impinges the traversing LEFT L5 nerve root in the subarticular recess. Moderate facet arthropathy. Moderate central canal stenosis. Mild bilateral foraminal narrowing. L5-S1: Disc bulging with slight contact of the LEFT greater than RIGHT S1 nerve roots. RIGHT foramen is patent. Advanced LEFT facet arthropathy. Mild to moderate LEFT foraminal narrowing with a LEFT foraminal protrusion. MR/MR lumbar spine wo/w con [id number] IMPRESSION: 1. No evidence of enhancing metastatic disease in the lumbar spine. 2. Disc space narrowing worse at L3-L4 and L4-L5. 3. Moderate central canal stenosis L2-3 with impingement of the LEFT subarticu lar recess. LEFT foraminal protrusion at this level impinges the exiting LEFT L 2 nerve root. 4. Moderate central canal stenosis L3-4 and L4-5. 5. RIGHT subarticular protrusion L3-4 impinges the RIGHT subarticular recess a nd RIGHT L4 nerve root. 6. LEFT subarticular protrusion L4-5 impinges the LEFT subarticular recess and traversing LEFT L5 nerve root. 7. Small LEFT foraminal protrusion L5-S1 with mild to moderate LEFT foraminal narrowing.
[2025-04-10] MEDS: gadobenate dimeglumine 20 mL vial IV (14:21)
[2025-04-16] VITALS (9 sets, daily range): BP systolic 100–130; BP diastolic 63–78; PULSE 69–94; RESP 16–18; TEMP 36.4–37.1; O2SAT 96–99
[2025-04-16 08:24] LABS: Hematocrit 37.5 % (36-47); Hemoglobin 11.90 g/dL (11.27-16.99); Mean Corpuscular HGB Conc 31.7 g/dL (30-55); Mean Corpuscular Hemoglobin 26.6 pg (27-33); Mean Corpuscular Volume 83.9 fl (85-98); Nucleated Red Blood Cells % 0 %; Platelet Count 113 10^3/cmm (157-399); Red Blood Count 4.47 10^6/uL (3.85-5.65); White Blood Count 4.02 10^3/uL (3.29-11.43)
[2025-04-16 08:54] LABS: Alanine Aminotransferase 13 U/L (0-33); Albumin Level 3.7 g/dL (3.5-5.2); Alkaline Phosphatase 97 U/L (35-105); Anion Gap 17.5 (5-19); Aspartate Amino Transferase 12 U/L (0-32); Blood Urea Nitrogen 10 mg/dL (8-23); Calcium 8.9 mg/dL (8.5-10.5); Carbon Dioxide 23 mmol/L (22-29); Chloride 106 mmol/L (98-107); Creatinine Clr Calc Pharmacy 72.1358; Globulin 2.3 g/dL (1.3-4.6); Glucose 114 mg/dL (65-115); Magnesium 1.7 mg/dL (1.7-2.3); Osmolality Calculated 296 mOsm/kg (285-295); Potassium 3.5 mmol/L (3.5-5.1); Sodium 143 mmol/L (136-145); Total Protein 6.0 g/dL (6.6-8.7); Uric Acid 3.7 mg/dL (2.4-5.7)
[2025-04-16] MEDS: dexamethasone 4 mg/mL INJ 5 mL 12 MG IVP (09:34)
[2025-04-16] MEDS: ondansetron 2 mg/ML SDV 2 mL 8 MG IVP (09:38)
[2025-04-16] MEDS: diphenhydrAMINE 50 mg/mL SDV 1mL 25 MG IVP (09:40)
[2025-04-16] MEDS: SODIUM CHLORIDE 0.9% IV ×2 (10:08→14:47)
[2025-04-16] MEDS: RITUXIMAB PVVR IV (10:08)
[2025-04-16] MEDS: BENDAMUSTINE IV (14:47)
== END 2025-04-16 23:59 | disposition home or self-care (01) ==
PROVIDERS: Nurse Practitioner; PCP Clinical Nurse Specialist Adult Health; Visit Provider Internal Medicine Medical Oncology
DX: Z53.9 Procedure and treatment not carried out, unspecified reason; Z51.11 Encounter for antineoplastic chemotherapy; C83.18 Mantle cell lymphoma, lymph nodes of multiple sites; D69.59 Other secondary thrombocytopenia; R21 Rash and other nonspecific skin eruption; T45.1X5A Adverse effect of antineoplastic and immunosuppressive drugs, initial encounter; Z79.52 Long term (current) use of systemic steroids; R03.0 Elevated blood-pressure reading, without diagnosis of hypertension; M51.369 Other intervertebral disc degeneration, lumbar region without mention of lumbar back pain or lower extremity pain
CPT/HCPCS: 36415; 72158; 80053; 83615; 83735; 84443; 84550; 85025; 96368; 96375; 96413; 96415; 99214; 99215; A9577; J1100; J1200; J2405; J7040; J7050; J9034; J9999; Q5119

== ENCOUNTER 2025-04-17 08:39 | Oncology outpatient (recurring) (ONCR) | payer MEDICARE, OTHER, SELFPAY ==
[2025-04-17] MEDS: dexamethasone 4 mg/mL INJ 5 mL 12 MG IVP (09:00)
[2025-04-17 09:09] VITALS: BP 130/78; PULSE 97; RESP 18; TEMP 36.6; O2SAT 98
[2025-04-17] MEDS: BENDAMUSTINE IV (09:39)
[2025-04-17] MEDS: SODIUM CHLORIDE 0.9% IV (09:39)
[2025-04-17 10:15] VITALS: BP 124/78; PULSE 76; RESP 17; TEMP 36.4; O2SAT 98
== END 2025-04-18 23:59 | disposition home or self-care (01) ==
PROVIDERS: PCP Clinical Nurse Specialist Adult Health; Visit Provider Internal Medicine Medical Oncology
DX: Z51.11 Encounter for antineoplastic chemotherapy (principal); C83.18 Mantle cell lymphoma, lymph nodes of multiple sites; Z79.52 Long term (current) use of systemic steroids; Z79.899 Other long term (current) drug therapy
CPT/HCPCS: 96375; 96413; J1100; J2469; J7050; J9034; J9999

== ENCOUNTER 2025-05-14 08:28 | Oncology outpatient (recurring) (ONCR) | payer MEDICARE, OTHER, SELFPAY ==
[2025-05-14 09:07] LABS: Alanine Aminotransferase 17 U/L (0-33); Albumin Level 3.8 g/dL (3.5-5.2); Alkaline Phosphatase 86 U/L (35-105); Anion Gap 13.9 (5-19); Aspartate Amino Transferase 16 U/L (0-32); Blood Urea Nitrogen 8 mg/dL (8-23); Calcium 9.2 mg/dL (8.5-10.5); Carbon Dioxide 25 mmol/L (22-29); Chloride 105 mmol/L (98-107); Creatinine Clr Calc Pharmacy 79.4466; Globulin 2.3 g/dL (1.3-4.6); Glucose 109 mg/dL (65-115); Osmolality Calculated 291 mOsm/kg (285-295); Sodium 141 mmol/L (136-145); Total Protein 6.1 g/dL (6.6-8.7)
[2025-05-14 09:20] LABS: Potassium 2.9 mmol/L (3.5-5.1)
[2025-05-14 10:27] LABS: Hematocrit 36.5 % (36-47); Hemoglobin 12.00 g/dL (11.27-16.99); Mean Corpuscular HGB Conc 32.9 g/dL (30-55); Mean Corpuscular Hemoglobin 28.7 pg (27-33); Mean Corpuscular Volume 87.3 fl (85-98); Nucleated Red Blood Cells % 0 %; Platelet Count 219 10^3/cmm (157-399); Red Blood Count 4.18 10^6/uL (3.85-5.65); White Blood Count 6.92 10^3/uL (3.29-11.43)
[2025-05-14] MEDS: sodium chlor 0.9% + KCl 40 mEq 40 MEQ/1,000 ML BAG 250 MEQ IV (10:47)
[2025-05-14 11:05] LABS: Magnesium 1.6 mg/dL (1.7-2.3)
[2025-05-14] MEDS: diphenhydrAMINE 50 mg/mL SDV 1mL 25 MG IVP (13:22)
[2025-05-14] MEDS: ondansetron 2 mg/ML SDV 2 mL 8 MG IVP (13:27)
[2025-05-14] MEDS: dexamethasone 4 mg/mL INJ 5 mL 12 MG IVP (13:33)
[2025-05-14] MEDS: RITUXIMAB PVVR IV (14:04)
[2025-05-14] MEDS: SODIUM CHLORIDE 0.9% IV (14:04)
[2025-05-14 14:10] VITALS: BP 107/73; PULSE 82; RESP 17; TEMP 36.8; O2SAT 96
[2025-05-14 14:40] VITALS: BP 112/76; PULSE 89; RESP 17; TEMP 36.6; O2SAT 96
[2025-05-14 14:41] LABS: C.Diff PCR (Lab) NEGATIVE (Negative)
[2025-05-14 15:16] VITALS: BP 120/76; PULSE 87; RESP 17; TEMP 36.4; O2SAT 95
[2025-05-14 15:50] VITALS: BP 134/80; PULSE 86; RESP 17; TEMP 36.6; O2SAT 96
[2025-05-14 17:23] VITALS: BP 123/77; PULSE 88; RESP 17; TEMP 36.8; O2SAT 94
== END 2025-05-14 23:59 | disposition home or self-care (01) ==
PROVIDERS: Nurse Practitioner; PCP Clinical Nurse Specialist Adult Health; Visit Provider Internal Medicine Medical Oncology
DX: Z51.11 Encounter for antineoplastic chemotherapy (principal); C83.10 Mantle cell lymphoma, unspecified site; C20 Malignant neoplasm of rectum; E87.6 Hypokalemia; R19.7 Diarrhea, unspecified; E89.0 Postprocedural hypothyroidism; Z79.52 Long term (current) use of systemic steroids; Z79.899 Other long term (current) drug therapy; Z53.9 Procedure and treatment not carried out, unspecified reason
CPT/HCPCS: 80053; 83615; 83735; 85025; 87045; 87177; 87209; 87338; 87427; 87449; 87493; 96367; 96375; 96411; 96413; 96415; J1100; J1200; J2405; J7040; J7050; J9034; J9999; Q5119

== ENCOUNTER 2025-05-15 08:24 | Oncology outpatient (recurring) (ONCR) | payer MEDICARE, OTHER, SELFPAY ==
[2025-05-15] MEDS: dexamethasone 4 mg/mL INJ 5 mL 12 MG IVP (08:49)
[2025-05-15 10:11] VITALS: BP 145/67; PULSE 87; RESP 16; TEMP 35.8; O2SAT 96
== END 2025-05-19 23:59 | disposition home or self-care (01) ==
PROVIDERS: PCP Clinical Nurse Specialist Adult Health; Visit Provider Internal Medicine Medical Oncology
DX: Z51.11 Encounter for antineoplastic chemotherapy (principal); C83.18 Mantle cell lymphoma, lymph nodes of multiple sites; Z79.899 Other long term (current) drug therapy; Z79.52 Long term (current) use of systemic steroids
CPT/HCPCS: 96375; 96413; J1100; J2469; J7050; J9034; J9999

== ENCOUNTER 2025-06-11 08:45 | Oncology outpatient (recurring) (ONCR) | payer MEDICARE, OTHER, SELFPAY ==
[2025-05-28 14:15] LABS: Hematocrit 35.1 % (36-47); Hemoglobin 11.70 g/dL (11.27-16.99); Mean Corpuscular HGB Conc 33.3 g/dL (30-55); Mean Corpuscular Hemoglobin 29.8 pg (27-33); Mean Corpuscular Volume 89.3 fl (85-98); Nucleated Red Blood Cells % 0 %; Platelet Count 182 10^3/cmm (157-399); Red Blood Count 3.93 10^6/uL (3.85-5.65); White Blood Count 6.77 10^3/uL (3.29-11.43)
[2025-05-28 14:36] LABS: Alanine Aminotransferase 18 U/L (0-33); Albumin Level 3.5 g/dL (3.5-5.2); Alkaline Phosphatase 74 U/L (35-105); Anion Gap 12.1 (5-19); Aspartate Amino Transferase 22 U/L (0-32); Blood Urea Nitrogen 5 mg/dL (8-23); Calcium 8.6 mg/dL (8.5-10.5); Carbon Dioxide 30 mmol/L (22-29); Chloride 110 mmol/L (98-107); Globulin 2.2 g/dL (1.3-4.6); Glucose 91 mg/dL (65-115); Osmolality Calculated 305 mOsm/kg (285-295); Potassium 3.1 mmol/L (3.5-5.1); Sodium 149 mmol/L (136-145); Total Protein 5.7 g/dL (6.6-8.7)
--- NOTE | 2025-05-31 11:30 | PETR_ITS ---
PROCEDURE INFORMATION: Exam: PET/CT Skull Base to Mid-thigh Exam date and time: 05/31/2025 4:49 PM Age: 65 years old Clinical indication: Condition or disease; Primary cancer: Mantle cell lymphoma; Prior surgery; Surgery date: 6+ months; Surgery type: Gastric bypass, gb; Additional info: Followup post treatment LABS AND CLINICAL REPORTS: Glucose: 137 mg/dl Treatment strategy for malignancy (PET staging): Restaging (PS) TECHNIQUE: Imaging protocol: Following at least four-hour fasting and following the injection of radiopharmaceutical, low dose CT images were obtained. Then, PET images were obtained. Attenuation corrected images were constructed using the CT scan. Fused images of PET and CT were reviewed. The standardized uptake values (SUV) reported below are maximum values within a region of interest, expressed in gm/ml. Exam includes orbital meatal line to mid-thigh. SUV normalization method: BodyWeight Radiopharmaceutical: 10.76 mCi F-18 FDG (Fluorodeoxyglucose), IV. Time of imaging post radiopharmaceutical administration: 48 minutes Injection site: left ac COMPARISON: 1. PT PET skull to thigh INIT [id number] 02/22/2025 1:14 PM 2. MR lumbar spine wo/w con [id number] 04/10/2025 1:54 PM FINDINGS: Tubes, catheters and devices: Right chest port terminates near the superior cavoatrial junction. Brain: Visualized brain has normal physiologic uptake. Pharynx: No abnormal uptake. Larynx: Symmetric uptake without underlying CT abnormality is likely benign activation. Lungs, pleura and trachea: No abnormal uptake. Mild bilateral platelike atelectasis versus scarring. Heart: Normal physiologic uptake. Coronary arteries: Mild coronary artery calcification. Mediastinal space: No abnormal uptake. Liver: No abnormal uptake. Gallbladder and biliary ducts: No abnormal uptake. Prior cholecystectomy. Pancreas: No abnormal uptake. Spleen: No abnormal uptake. No splenomegaly. Adrenal glands: No abnormal uptake. Kidneys and ureters: Normal physiologic uptake. Stomach and bowel: Few FDG avid foci along the descending colon without definite underlying CT abnormality, index focus proximally showing SUV max 21.5 on axial image 166. Gastric postsurgical changes. Colonic diverticulosis without findings of diverticulitis. Vasculature: No abnormal uptake. Mild systemic atherosclerotic calcification without aortic aneurysm. Lymph nodes: No abnormal uptake. No lymphadenopathy in the head, neck, chest, abdomen, pelvis, and extremities. Skeleton: Mild increased uptake along the spine, pelvis and bilateral femora without underlying CT abnormality. Degenerative change along the spine. Soft tissues: No abnormal uptake in the visualized head, neck, chest, abdomen, pelvis, and extremities. METRICS: Mediastinal blood pool: SUV mean 2.4 Liver uptake: SUV mean 2.7 PET/PET skull to thigh SUBS [id number] IMPRESSION: 1. Findings of Deauville 1 complete response with resolved widespread FDG-avid lymphadenopathy and splenomegaly. 2. Mild increased uptake along the spine, pelvis and bilateral femora favored to represent benign hyperplasia/posttreatment change. 3. Few FDG avid foci along the descending colon without definite underlying CT abnormality may be inflammatory, small neoplasm not excluded.
[2025-06-03 13:57] LABS: Hematocrit 36.3 % (36-47); Hemoglobin 11.80 g/dL (11.27-16.99); Mean Corpuscular HGB Conc 32.5 g/dL (30-55); Mean Corpuscular Hemoglobin 29.4 pg (27-33); Mean Corpuscular Volume 90.3 fl (85-98); Nucleated Red Blood Cells % 0 %; Platelet Count 180 10^3/cmm (157-399); Red Blood Count 4.02 10^6/uL (3.85-5.65); White Blood Count 5.16 10^3/uL (3.29-11.43)
[2025-06-03 14:28] LABS: Alanine Aminotransferase 16 U/L (0-33); Albumin Level 3.6 g/dL (3.5-5.2); Alkaline Phosphatase 76 U/L (35-105); Anion Gap 14.5 (5-19); Aspartate Amino Transferase 16 U/L (0-32); Blood Urea Nitrogen 7 mg/dL (8-23); Calcium 8.7 mg/dL (8.5-10.5); Carbon Dioxide 25 mmol/L (22-29); Chloride 111 mmol/L (98-107); Creatinine Clr Calc Pharmacy 89.9719; Globulin 2.2 g/dL (1.3-4.6); Glucose 134 mg/dL (65-115); Osmolality Calculated 304 mOsm/kg (285-295); Potassium 3.5 mmol/L (3.5-5.1); Sodium 147 mmol/L (136-145); Total Protein 5.8 g/dL (6.6-8.7)
[2025-06-11 09:02] LABS: Hematocrit 37.1 % (36-47); Hemoglobin 12.10 g/dL (11.27-16.99); Mean Corpuscular HGB Conc 32.6 g/dL (30-55); Mean Corpuscular Hemoglobin 29.9 pg (27-33); Mean Corpuscular Volume 91.6 fl (85-98); Nucleated Red Blood Cells % 0 %; Platelet Count 187 10^3/cmm (157-399); Red Blood Count 4.05 10^6/uL (3.85-5.65); White Blood Count 6.50 10^3/uL (3.29-11.43)
[2025-06-11 09:25] LABS: Alanine Aminotransferase 18 U/L (0-33); Albumin Level 3.9 g/dL (3.5-5.2); Alkaline Phosphatase 83 U/L (35-105); Anion Gap 15.2 (5-19); Aspartate Amino Transferase 18 U/L (0-32); Blood Urea Nitrogen 10 mg/dL (8-23); Calcium 9.2 mg/dL (8.5-10.5); Carbon Dioxide 25 mmol/L (22-29); Chloride 105 mmol/L (98-107); Creatinine Clr Calc Pharmacy 88.7829; Globulin 2.3 g/dL (1.3-4.6); Glucose 118 mg/dL (65-115); Osmolality Calculated 292 mOsm/kg (285-295); Potassium 4.2 mmol/L (3.5-5.1); Sodium 141 mmol/L (136-145); Total Protein 6.2 g/dL (6.6-8.7)
[2025-06-11 09:53] VITALS: BP 151/96; PULSE 94; RESP 17; TEMP 36.1; O2SAT 97
[2025-06-11] MEDS: dexamethasone 4 mg/mL INJ 5 mL 12 MG IVP (10:08)
[2025-06-11] MEDS: diphenhydrAMINE 50 mg/mL SDV 1mL 25 MG IVP (10:11)
[2025-06-11] MEDS: ondansetron 2 mg/ML SDV 2 mL 8 MG IVP (10:13)
[2025-06-11] MEDS: SODIUM CHLORIDE 0.9% IV (10:56)
[2025-06-11] MEDS: RITUXIMAB PVVR IV (10:56)
[2025-06-11 11:01] VITALS: BP 99/58; PULSE 92; RESP 16; TEMP 36.1; O2SAT 99
[2025-06-11 14:27] VITALS: BP 116/69; PULSE 86; RESP 16; TEMP 36.6; O2SAT 96
== END 2025-06-11 23:59 | disposition home or self-care (01) ==
PROVIDERS: PCP Clinical Nurse Specialist Adult Health; Visit Provider Nurse Practitioner
DX: Z51.11 Encounter for antineoplastic chemotherapy; C83.10 Mantle cell lymphoma, unspecified site; R03.0 Elevated blood-pressure reading, without diagnosis of hypertension; M51.369 Other intervertebral disc degeneration, lumbar region without mention of lumbar back pain or lower extremity pain; D69.6 Thrombocytopenia, unspecified; Z79.52 Long term (current) use of systemic steroids; Z79.899 Other long term (current) drug therapy; Z53.9 Procedure and treatment not carried out, unspecified reason
CPT/HCPCS: 36591; 78815; 80053; 83615; 85025; 96375; 96411; 96413; 96415; 99214; 99215; A9552; J1100; J1200; J2405; J7040; J7050; J9034; J9999; Q5119

== ENCOUNTER 2025-06-12 08:56 | Oncology outpatient (recurring) (ONCR) | payer MEDICARE, OTHER, SELFPAY ==
[2025-06-12] MEDS: dexamethasone 4 mg/mL INJ 5 mL 12 MG IVP (09:12)
[2025-06-12 09:21] VITALS: BP 133/74; PULSE 91; RESP 17; TEMP 35.8; O2SAT 97
[2025-06-12] MEDS: BENDAMUSTINE IV (10:01)
[2025-06-12] MEDS: SODIUM CHLORIDE 0.9% IV (10:01)
[2025-06-12 10:39] VITALS: BP 109/74; PULSE 92; RESP 17; TEMP 36.8; O2SAT 99
== END 2025-06-18 23:59 | disposition home or self-care (01) ==
LOC: ONCMED 08:56
PROVIDERS: PCP Clinical Nurse Specialist Adult Health; Visit Provider Nurse Practitioner
DX: Z51.11 Encounter for antineoplastic chemotherapy (principal); C83.10 Mantle cell lymphoma, unspecified site; Z79.899 Other long term (current) drug therapy; Z79.52 Long term (current) use of systemic steroids
CPT/HCPCS: 96367; 96413; J1100; J2469; J7050; J9034; J9999

== ENCOUNTER 2025-07-09 08:57 | Oncology outpatient (recurring) (ONCR) | payer MEDICARE, OTHER, SELFPAY ==
[2025-07-09 09:24] LABS: Hematocrit 35.3 % (36-47); Hemoglobin 11.70 g/dL (11.27-16.99); Mean Corpuscular HGB Conc 33.1 g/dL (30-55); Mean Corpuscular Hemoglobin 31.5 pg (27-33); Mean Corpuscular Volume 94.9 fl (85-98); Nucleated Red Blood Cells % 0 %; Platelet Count 172 10^3/cmm (157-399); Red Blood Count 3.72 10^6/uL (3.85-5.65); White Blood Count 5.56 10^3/uL (3.29-11.43)
[2025-07-09 09:43] LABS: Alanine Aminotransferase 14 U/L (0-33); Albumin Level 3.7 g/dL (3.5-5.2); Alkaline Phosphatase 85 U/L (35-105); Anion Gap 15.1 (5-19); Aspartate Amino Transferase 16 U/L (0-32); Blood Urea Nitrogen 11 mg/dL (8-23); Calcium 9.2 mg/dL (8.5-10.5); Carbon Dioxide 25 mmol/L (22-29); Chloride 105 mmol/L (98-107); Globulin 2.4 g/dL (1.3-4.6); Glucose 104 mg/dL (65-115); Osmolality Calculated 292 mOsm/kg (285-295); Potassium 4.1 mmol/L (3.5-5.1); Sodium 141 mmol/L (136-145); Total Protein 6.1 g/dL (6.6-8.7)
[2025-07-09] MEDS: dexamethasone 4 mg/mL INJ 5 mL 12 MG IVP (11:23)
[2025-07-09] MEDS: ondansetron 2 mg/ML SDV 2 mL 8 MG IVP (11:30)
[2025-07-09] MEDS: diphenhydrAMINE 50 mg/mL SDV 1mL 25 MG IVP (11:36)
[2025-07-09 12:10] VITALS: BP 127/77; PULSE 73; RESP 17; TEMP 36.3; O2SAT 97
[2025-07-09] MEDS: RITUXIMAB PVVR IV (12:10)
[2025-07-09] MEDS: SODIUM CHLORIDE 0.9% IV ×2 (12:10→15:15)
[2025-07-09 12:40] VITALS: BP 132/77; PULSE 76; RESP 17; TEMP 36.3; O2SAT 95
[2025-07-09 13:10] VITALS: BP 132/72; PULSE 88; RESP 17; TEMP 36.6; O2SAT 96
[2025-07-09 13:40] VITALS: BP 135/76; PULSE 90; RESP 17; TEMP 36.3; O2SAT 95
[2025-07-09 15:10] VITALS: BP 128/76; PULSE 88; RESP 16; TEMP 36.6; O2SAT 93
[2025-07-09] MEDS: BENDAMUSTINE IV (15:15)
[2025-07-09 15:35] VITALS: BP 125/74; PULSE 90; RESP 16; TEMP 36.4; O2SAT 95
== END 2025-07-09 23:59 | disposition home or self-care (01) ==
PROVIDERS: Internal Medicine Medical Oncology; PCP Family Medicine; Visit Provider Nurse Practitioner
DX: Z51.11 Encounter for antineoplastic chemotherapy (principal); Z51.12 Encounter for antineoplastic immunotherapy; C83.10 Mantle cell lymphoma, unspecified site; R03.0 Elevated blood-pressure reading, without diagnosis of hypertension; Z79.899 Other long term (current) drug therapy; Z79.52 Long term (current) use of systemic steroids
CPT/HCPCS: 80053; 83615; 85025; 96375; 96411; 96413; 96415; 99214; J1100; J1200; J2405; J7040; J7050; J9034; J9999; Q5119

== ENCOUNTER 2025-07-10 09:57 | Oncology outpatient (recurring) (ONCR) | payer MEDICARE, OTHER, SELFPAY ==
[2025-07-10 10:11] VITALS: BP 134/78; PULSE 103; TEMP 36.2
[2025-07-10] MEDS: dexamethasone 4 mg/mL INJ 5 mL 12 MG IVP (10:42)
[2025-07-10] MEDS: BENDAMUSTINE IV (11:14)
[2025-07-10] MEDS: SODIUM CHLORIDE 0.9% IV (11:14)
[2025-07-10 11:58] VITALS: BP 124/75; PULSE 94; RESP 17; TEMP 36.6; O2SAT 96
== END 2025-07-19 23:59 | disposition home or self-care (01) ==
PROVIDERS: PCP Family Medicine; Visit Provider Internal Medicine Medical Oncology
DX: Z51.11 Encounter for antineoplastic chemotherapy (principal); C83.10 Mantle cell lymphoma, unspecified site; Z79.52 Long term (current) use of systemic steroids; Z79.899 Other long term (current) drug therapy
CPT/HCPCS: 96375; 96413; J1100; J2469; J7050; J9034; J9999

== ENCOUNTER 2025-08-06 07:59 | Oncology outpatient (recurring) (ONCR) | payer MEDICARE, OTHER, SELFPAY ==
[2025-08-06 08:02] VITALS: BP 129/67
[2025-08-06 08:15] LABS: Hematocrit 35.4 % (36-47); Hemoglobin 11.70 g/dL (11.27-16.99); Mean Corpuscular HGB Conc 33.1 g/dL (30-55); Mean Corpuscular Hemoglobin 30.5 pg (27-33); Mean Corpuscular Volume 92.4 fl (85-98); Nucleated Red Blood Cells % 0 %; Platelet Count 176 10^3/cmm (157-399); Red Blood Count 3.83 10^6/uL (3.85-5.65); White Blood Count 6.70 10^3/uL (3.29-11.43)
[2025-08-06 08:31] LABS: Alanine Aminotransferase 15 U/L (0-33); Albumin Level 3.9 g/dL (3.5-5.2); Alkaline Phosphatase 80 U/L (35-105); Anion Gap 16.9 (5-19); Aspartate Amino Transferase 16 U/L (0-32); Blood Urea Nitrogen 14 mg/dL (8-23); Calcium 9.1 mg/dL (8.5-10.5); Carbon Dioxide 23 mmol/L (22-29); Chloride 107 mmol/L (98-107); Creatinine Clr Calc Pharmacy 79.4466; Globulin 2.3 g/dL (1.3-4.6); Glucose 100 mg/dL (65-115); Osmolality Calculated 297 mOsm/kg (285-295); Potassium 3.9 mmol/L (3.5-5.1); Sodium 143 mmol/L (136-145); Total Protein 6.2 g/dL (6.6-8.7)
[2025-08-06] MEDS: ondansetron 2 mg/ML SDV 2 mL 8 MG IVP (10:00)
[2025-08-06] MEDS: diphenhydrAMINE 50 mg/mL SDV 1mL 25 MG IVP (10:04)
[2025-08-06] MEDS: dexamethasone 4 mg/mL INJ 5 mL 12 MG IVP (10:09)
[2025-08-06] MEDS: SODIUM CHLORIDE 0.9% IV (10:44)
[2025-08-06] MEDS: RITUXIMAB PVVR IV (10:44)
[2025-08-06 10:50] VITALS: BP 117/73; PULSE 78; RESP 18; TEMP 36.4; O2SAT 99
[2025-08-06 11:15] VITALS: BP 106/66; PULSE 82; RESP 18; TEMP 36.4; O2SAT 99
[2025-08-06 11:45] VITALS: BP 103/67; PULSE 75; RESP 18; TEMP 36.2; O2SAT 98
[2025-08-06 12:20] VITALS: BP 115/62; PULSE 72; RESP 18; TEMP 36.1; O2SAT 98
[2025-08-06 14:16] VITALS: PULSE 86; RESP 18; TEMP 36.4; O2SAT 93
== END 2025-08-06 23:59 | disposition home or self-care (01) ==
PROVIDERS: Nurse Practitioner; PCP Family Medicine; Visit Provider Internal Medicine Medical Oncology
DX: Z51.11 Encounter for antineoplastic chemotherapy (principal); C83.10 Mantle cell lymphoma, unspecified site; Z79.52 Long term (current) use of systemic steroids; Z79.899 Other long term (current) drug therapy
CPT/HCPCS: 80053; 83615; 85025; 96375; 96413; 96415; 99214; J1100; J1200; J2405; J7040; J7050; J9034; J9999; Q5119

== ENCOUNTER 2025-08-07 09:58 | Oncology outpatient (recurring) (ONCR) | payer MEDICARE, OTHER, SELFPAY ==
[2025-08-07 10:37] VITALS: BP 126/77; PULSE 77; RESP 16; TEMP 36.7; O2SAT 98
[2025-08-07] MEDS: dexamethasone 4 mg/mL INJ 5 mL 12 MG IVP (10:47)
[2025-08-07 11:53] VITALS: BP 146/75; PULSE 85; RESP 18; TEMP 36.7; O2SAT 98
== END 2025-08-18 23:59 | disposition home or self-care (01) ==
PROVIDERS: PCP Family Medicine; Visit Provider Internal Medicine Medical Oncology
DX: Z51.11 Encounter for antineoplastic chemotherapy (principal); C83.10 Mantle cell lymphoma, unspecified site; Z79.52 Long term (current) use of systemic steroids; Z79.899 Other long term (current) drug therapy
CPT/HCPCS: 96375; 96411; J1100; J2469; J7050; J9034; J9999

== ENCOUNTER → 2025-08-13 11:31 | Outpatient (BNVA) | payer MEDICARE, OTHER, SELFPAY | PROVIDERS: PCP Family Medicine; Visit Provider Surgery | DX: Z12.11 Encounter for screening for malignant neoplasm of colon (principal) | CPT/HCPCS: 99024; 99214 ==

== ENCOUNTER 2025-09-03 10:15 | Oncology outpatient (recurring) (ONCR) | payer MEDICARE, OTHER, SELFPAY ==
--- NOTE | 2025-08-30 11:00 | PETR_ITS ---
PROCEDURE INFORMATION: Exam: PET/CT Skull Base to Mid-thigh Exam date and time: 08/30/2025 11:41 AM Age: 65 years old Clinical indication: Condition or disease; Primary cancer: Mantle cell lymphoma; Prior surgery; Surgery date: 6+ months; Surgery type: Gastric bypass, gb; Additional info: Restaging post treatment LABS AND CLINICAL REPORTS: Glucose: 144 mg/dl Treatment strategy for malignancy (PET staging): Restaging (PS) TECHNIQUE: Imaging protocol: Following at least four-hour fasting and following the injection of radiopharmaceutical, low dose CT images were obtained. Then, PET images were obtained. Attenuation corrected images were constructed using the CT scan. Fused images of PET and CT were reviewed. The standardized uptake values (SUV) reported below are maximum values within a region of interest, expressed in gm/ml. Exam includes orbital meatal line to mid-thigh. SUV normalization method: BodyWeight Radiopharmaceutical: 10.04 mCi F-18 FDG (Fluorodeoxyglucose), IV. Time of imaging post radiopharmaceutical administration: 47 minutes Injection site: left ac COMPARISON: PT PET skull to thigh SUBS [id number] 05/31/2025 4:49 PM FINDINGS: Tubes, catheters and devices: Right chest port terminates near the superior cavoatrial junction. Brain: Visualized brain has normal physiologic uptake. Pharynx: No abnormal uptake. Larynx: Symmetric uptake without underlying CT abnormality is likely benign activation. Lungs, pleura and trachea: No abnormal uptake. Mild bilateral platelike atelectasis versus scarring. Heart: Normal physiologic uptake. Coronary arteries: Mild coronary artery calcification. Mediastinal space: No abnormal uptake. Liver: No abnormal uptake. Gallbladder and biliary ducts: No abnormal uptake. Prior cholecystectomy. Pancreas: No abnormal uptake. Spleen: No abnormal uptake. No splenomegaly. Adrenal glands: No abnormal uptake. Kidneys and ureters: Normal physiologic uptake. Stomach and bowel: Long segment FDG uptake along the colon is likely benign physiologic or inflammatory. Gastric postsurgical changes. Colonic diverticulosis without findings of diverticulitis. Vasculature: No abnormal uptake. Mild systemic atherosclerotic calcification without aortic aneurysm. Lymph nodes: No abnormal uptake. No lymphadenopathy in the head, neck, chest, abdomen, pelvis, and extremities. Skeleton: No abnormal uptake. Degenerative change along the spine. Soft tissues: No abnormal uptake in the visualized head, neck, chest, abdomen, pelvis, and extremities. Small fat containing periumbilical hernia. METRICS: Mediastinal blood pool: SUV mean 2.7 Liver uptake: SUV mean 3.0 PET/PET skull to thigh SUBS [id number] IMPRESSION: Continued findings of Deauville 1 complete response.
[2025-09-03 10:37] LABS: Hematocrit 34.0 % (36-47); Hemoglobin 11.00 g/dL (11.27-16.99); Mean Corpuscular HGB Conc 32.4 g/dL (30-55); Mean Corpuscular Hemoglobin 29.7 pg (27-33); Mean Corpuscular Volume 91.9 fl (85-98); Nucleated Red Blood Cells % 0 %; Platelet Count 150 10^3/cmm (157-399); Red Blood Count 3.70 10^6/uL (3.85-5.65); White Blood Count 4.13 10^3/uL (3.29-11.43)
[2025-09-03 11:03] LABS: Alanine Aminotransferase 14 U/L (0-33); Albumin Level 3.7 g/dL (3.5-5.2); Alkaline Phosphatase 82 U/L (35-105); Anion Gap 12.9 (5-19); Aspartate Amino Transferase 15 U/L (0-32); Blood Urea Nitrogen 10 mg/dL (8-23); Calcium 8.5 mg/dL (8.5-10.5); Carbon Dioxide 27 mmol/L (22-29); Chloride 107 mmol/L (98-107); Globulin 1.7 g/dL (1.3-4.6); Glucose 104 mg/dL (65-115); Osmolality Calculated 295 mOsm/kg (285-295); Potassium 3.9 mmol/L (3.5-5.1); Sodium 143 mmol/L (136-145); Total Protein 5.4 g/dL (6.6-8.7)
== END 2025-09-18 23:59 | disposition home or self-care (01) ==
PROVIDERS: Nurse Practitioner; PCP Family Medicine; Visit Provider Internal Medicine Medical Oncology
DX: C83.10 Mantle cell lymphoma, unspecified site; Z79.899 Other long term (current) drug therapy; Z53.9 Procedure and treatment not carried out, unspecified reason
CPT/HCPCS: 78815; 80053; 83615; 85025; 99214; A9552

== ENCOUNTER 2025-09-05 08:27 | Day surgery (SDC) | payer MEDICARE, OTHER, SELFPAY ==
[2025-09-05 08:42] VITALS: BMI 40.3
[2025-09-05 08:46] VITALS: BP 137/83; PULSE 116; RESP 18; TEMP 36; O2SAT 97
--- NOTE | 2025-09-05 08:56 | W.PM.OPSFHP ---
Same Day Surgery H&P Indication for Procedure/HPI DATE OF PROCEDURE: September 05, 2025 CHIEF COMPLAINT/INDICATIONFOR SURGICAL PROCEDURE: need for screening colonoscopy PREOP DIAGNOSIS: need for screening colonoscopy PLANNED PROCEDURE: Operation Date: 09/05/25 10:10 Proposed Procedures p Colonoscopy [id number] G0105 Z12.11(Not Applicable) - Jaylan Hopper MD Medications/Allergies* Home Medications ?Medication ?Instructions ?Recorded ?Confirmed ?Type CPAP with mask, tubing and all 01/31/24 09/03/25 History other supplies acyclovir 400 mg tablet 400 mg PO BID 06/25/25 09/03/25 History aspirin 81 mg tablet 81 mg PO DAILY 06/25/25 09/03/25 History lidocaine-prilocaine 2.5 %-2.5 % 1 applic topical ONCE PRN Pain 09/02/25 09/03/25 History topical kit multivitamin with minerals-folic 1 cap PO DAILY 09/02/25 09/03/25 History 133.3 mcg-biotin 1,666.7 mcg capsule (Hair,Skin and Nails (folic acid-biotin)) vits 26-iron ps 29 mg 1 cap PO DAILY 09/02/25 09/03/25 History iron-folic acid 1 mg-dha 200 mg capsule Allergies/Adverse Reactions Allergy/AdvReac Type Severity Reaction Status Date / Time Penicillins Allergy Intermediate ADR-skin Verified 09/03/25 11:08 rash Tetracyclines Allergy Unknown Unknown Verified 09/03/25 11:08 Current Medications: Generic Name Dose Route Start Last Admin Trade Name Freq PRN Reason Stop Dose Admin Sodium Chloride 1,000 mls @ 15 mls/hr 09/05/25 08:36 09/05/25 08:51 Sodium Chloride 0.9% IV 09/06/25 08:35 15 mls/hr .Q24H PRN Administration COLONOSCOPY FLUIDS Pertinent History/Comorbid Conditions* Medical History (Updated 06/25/25 @ 17:55 by [place] Tapia MD) Mantle cell lymphoma Thyroid cancer RAJENDRA (obstructive sleep apnea) compliant with CPAP Migraines Morbid obesity Hypothyroidism Minor depression Generalized anxiety disorder Seasonal allergies Hx of Graves' disease Surgical History (Updated 06/25/25 @ 13:59 by [place] Tapia MD) History of cholecystectomy History of insertion of tunneled central venous catheter (CVC) with port 6/25/25 Hx of thyroidectomy 2007, papillary and follicular cancer History of gastric surgery 1986, stomach stapled with a ring put around it. gallbladder removed at that time. History of bilateral carpal tunnel release bilateral 2001 Hx of tonsillectomy 1977 Family History (Updated 06/25/25 @ 14:04 by [place] Tapia MD) Brother Mother Colon cancer Mother, Onset Age: 55 Diagnosed in her 50's. in her 60's Diabetes Mother CAD (coronary artery disease) Brother Congestive heart failure (CHF) Brother Hyperthyroidism Father Sister Myocardial infarction Brother Breast cancer Mother Hx of kidney transplant Brother Denies family history of Clotting disorder Anesthesia complication Bleeding disorder Social History Smoking and tobacco/nicotine status: never used tobacco/nicotine Alcohol intake: current Alcohol intake frequency: holidays/special occasions only Substance/Drug Use: current Other substance/drug use details: smokes occasionally if playing cards Marital status: Marital status details: 3 step children Number of grandchildren: 4 Pertinent Exam Findings alert, oriented x 3, clear to auscultation bilaterally and regular rate & rhythm Recommendations Surgery/Procedure today Coding Level of Care Code Acute Code for Chg Fwd
--- NOTE | 2025-09-05 09:29 | ANES.PREANE2 ---
Pre-Anesthetic Assessment Height/Weight: Height 1.68 m Weight 113.398 kg Temp Pulse Resp BP Pulse Ox O2 Del Method 96.8 F L 116 H 18 137/83 97 Room Air 09/05/25 08:46 09/05/25 08:46 09/05/25 08:46 09/05/25 08:46 09/05/25 08:46 09/05/25 08:46 Preop Diagnosis: need for screening colonoscopy Operation Date: 09/05/25 10:10 Proposed Procedures p Colonoscopy 21837 G0105 Z12.11(Not Applicable) - Jaylan Hopper MD Familial anesthetic complications: History of difficult intubation Was Beta Kartik taken within 24 hours: N/A Was Clonidine taken within 24 hours: N/A Last intake: Intake Last Liquid Date 09/04/25 Last Liquid Time 22:00 Last Solid Date 09/03/25 Last Solid Time 19:00 Social Alcohol (Social) and No tobacco Exam alert, oriented x 3, clear to auscultation bilaterally and regular rate & rhythm Airway Submandibular: within normal limits Cervical ROM: Other (Decreased ROM) Mallampati: Class III Dentition: chipped (Some missing teeth as well, denies anything being loose) and full History/ROS No significant history except as noted and No significant complaints Pulmonary Asthma, Exertional Dyspnea and Sleep Apnea CV/HEM Palpitations (Gone away since thyroidectomy) Chronic Renal Insufficiency Hepatic None reported GI Diarrhea, stomach pains Metabolic Thyroid Disease (Thyroidectomy 2007) Musc/skel Lower Back Pain and Osteoarthritis/DJD Neuropsych Headache Anesthetic Plan ASA status: 3 Anesthesia: Anesthesia Evaluation, General and MAC Other: Receiving Chemo Risk of > 500 ml blood loss (7ml/kg in children): No Medications/Allergies Home Medications ?Medication ?Instructions ?Recorded ?Confirmed ?Last Taken ?Type CPAP with mask, tubing and all 01/31/24 09/03/25 Unknown History other supplies ondansetron HCl 4 mg tablet 4 mg PO Q6H PRN nausea and 03/06/25 09/03/25 08/01/25 Rx vomiting #30 tabs prochlorperazine maleate 10 mg 10 mg PO Q4H PRN mild nausea #30 03/06/25 09/03/25 Unknown Rx tablet (Compazine) tabs carisoprodol 250 mg tablet (Soma) 250 mg PO TID PRN muscle pain #30 04/02/25 09/03/25 Unknown Rx tabs hydrocodone 5 mg-acetaminophen 325 2 tab PO Q4H PRN pain 5 days #60 04/02/25 09/03/25 Unknown Rx mg tablet tabs potassium chloride 20 mEq 20 meq PO BID #60 tabs 05/28/25 09/03/25 09/02/25 Rx tablet,extended release (K-Tab) acyclovir 400 mg tablet 400 mg PO BID 06/25/25 09/03/25 09/03/25 History aspirin 81 mg tablet 81 mg PO DAILY 06/25/25 09/03/25 09/03/25 History duloxetine 60 mg capsule,delayed 60 mg PO QPM #90 caps 07/01/25 09/03/25 09/04/25 Rx release levothyroxine 88 mcg tablet 88 mcg PO QAM #90 tabs 08/29/25 09/03/25 09/05/25 07:00 Rx lidocaine-prilocaine 2.5 %-2.5 % 1 applic topical ONCE PRN Pain 09/02/25 09/03/25 Unknown History topical kit multivitamin with minerals-folic 1 cap PO DAILY 09/02/25 09/03/25 09/02/25 History 133.3 mcg-biotin 1,666.7 mcg capsule (Hair,Skin and Nails (folic acid-biotin)) vits 26-iron ps 29 mg 1 cap PO DAILY 09/02/25 09/03/25 09/02/25 History iron-folic acid 1 mg-dha 200 mg capsule acalabrutinib maleate 100 mg 100 mg PO BID #60 tabs 09/05/25 09/05/25 09/03/25 Rx tablet (Calquence (acalabrutinib maleate)) Allergies Allergy/AdvReac Type Severity Reaction Status Date / Time Penicillins Allergy Intermediate ADR-skin Verified 09/03/25 11:08 rash Tetracyclines Allergy Unknown Unknown Verified 09/03/25 11:08 Current Medications Generic Name Dose Route Start Last Admin Trade Name Freq PRN Reason Stop Dose Admin Sodium Chloride 1,000 mls @ 15 mls/hr 09/05/25 08:36 09/05/25 08:51 Sodium Chloride 0.9% IV 09/06/25 08:35 15 mls/hr .Q24H PRN Administration COLONOSCOPY FLUIDS PFSH Anesthesia Medical History Mantle cell lymphoma Thyroid cancer RAJENDRA (obstructive sleep apnea) compliant with CPAP Migraines Morbid obesity Hypothyroidism Minor depression Generalized anxiety disorder Seasonal allergies Hx of Graves' disease Surgical History History of cholecystectomy History of insertion of tunneled central venous catheter (CVC) with port 03/13/25 Hx of thyroidectomy 2007, papillary and follicular cancer History of gastric surgery 1986, stomach stapled with a ring put around it. gallbladder removed at that time. History of bilateral carpal tunnel release bilateral 2001 Hx of tonsillectomy 1977 Family History Mother Breast cancer Diabetes Colon cancer, Onset Age: 55 Diagnosed in her 50's. in her 60's Brother CAD (coronary artery disease) Congestive heart failure (CHF) Hx of kidney transplant Father Hyperthyroidism Sister Hyperthyroidism Brother Myocardial infarction Denies family history of Clotting disorder Anesthesia complication Bleeding disorder Social History Smoking and tobacco/nicotine status: never used tobacco/nicotine Alcohol intake: current Alcohol intake frequency: holidays/special occasions only Substance/Drug Use: current Other substance/drug use details: smokes occasionally if playing cards Marital status: Marital status details: 3 step children Number of grandchildren: 4
[2025-09-05 10:30] VITALS: BP 121/61; PULSE 96; RESP 12; TEMP 36.3; O2SAT 98
[2025-09-05 10:45] VITALS: BP 115/73; PULSE 97; RESP 14; O2SAT 98
--- NOTE | 2025-09-06 11:04 | ANE.PACU2 ---
Inpatient post-anesthesia follow up: Airway intact: Yes Vital signs: Temperature 97.4 F Pulse Rate 97 Respiratory Rate 14 Blood Pressure 115/73 Pulse Oximetry 98 Oxygen Delivery Me thod Nasal Cannula Oxygen Flow Rate 2 Fraction of Inspir ed Oxygen Hydration adequate: Yes Nausea and vomiting: No Pain level: 1 Mental status: Baseline
== END 2025-09-05 11:04 | disposition home or self-care (01) ==
PROVIDERS: PCP Family Medicine; Visit Provider Surgery
PROC: 0DJD8ZZ Inspection of Lower Intestinal Tract, Via Natural or Artificial Opening Endoscopic (ICD-10-PCS; CPT 45378; principal; 2025-09-05 10:10)
DX: Z12.11 Encounter for screening for malignant neoplasm of colon (principal); D12.4 Benign neoplasm of descending colon; J45.909 Unspecified asthma, uncomplicated; R00.2 Palpitations; N18.9 Chronic kidney disease, unspecified; G47.33 Obstructive sleep apnea (adult) (pediatric); Z99.89 Dependence on other enabling machines and devices; Z85.850 Personal history of malignant neoplasm of thyroid; Z85.72 Personal history of non-Hodgkin lymphomas; E03.9 Hypothyroidism, unspecified; E66.01 Morbid (severe) obesity due to excess calories; Z68.41 Body mass index [BMI] 40.0-44.9, adult; F41.8 Other specified anxiety disorders; Z80.3 Family history of malignant neoplasm of breast; Z80.0 Family history of malignant neoplasm of digestive organs
CPT/HCPCS: 45385; 88305; J2704; J7030